=== PATIENT | male | born 1995 | race Two or more races ===

== ENCOUNTER 2021-04-24 18:55 | Emergency (ER) | payer MEDICAID ==
[~2021-04-24] VITALS: Ht 165.1 cm; Wt 100.0 kg
[2021-04-24 19:53] VITALS: BP 108/55
== END 2021-04-24 22:13 | disposition home or self-care (01) ==
LOC: ER 18:55
DX: T54.3X1A Toxic effect of corrosive alkalis and alkali-like substances, accidental (unintentional), initial encounter (principal); R68.89 Other general symptoms and signs; Y92.89 Other specified places as the place of occurrence of the external cause
CPT/HCPCS: 71045; 99283